=== PATIENT | male | born 1955 | race Two or more races ===

== ENCOUNTER → 2019-09-01 | Outpatient (CLI) | payer MEDICARE ==
[~2019-09-01] MED LIST: ATOR10TA60 PO; CITA20TA9 PO; GADOTERATE 5 MMOL/10ML VIAL. IVP ONE; HYDR12.575 PO; LISI2.5T PO
--- NOTE | 2019-09-01 15:43 | KCIC ---
LUMBAR SPINE WO/W CONTRAST Date: 09/01/2019 12:30 PM Indication: Low back pain with right lower extremity radiculopathy Comparison: CT abdomen pelvis 01/28/2015. Technique: Multi-planar multi-weighted magnetic resonance imaging of the lumbar spine was performed with and without intravenous contrast using the standard lumbar spine protocol. 20 cc Dotarem contrast was administered intravenously during the examination. FINDINGS: The lumbar spine is normally aligned. No acute fracture. Mild multilevel degenerative disc desiccation and disc height loss. Mild fatty degenerative endplate changes at multiple levels. Trace degenerative endplate edema at L5-S1. The conus terminates at a normal level. No abnormal signal is seen within the visualized distal spinal cord. No clumping of intrathecal nerve roots. No abnormal enhancement. No soft tissue abnormality in the visualized abdomen or pelvis. T12-L1: No disc bulge. No facet arthropathy. No significant spinal stenosis or neural foraminal narrowing. L1-L2: No disc bulge. No facet arthropathy. No significant spinal stenosis or neural foraminal narrowing. L2-L3: Disc bulge with annular tear. Mild facet arthropathy. No significant spinal stenosis or neural foraminal narrowing. L3-L4: Disc bulge. Mild to moderate facet arthropathy. Ligamentum flavum thickening. Mild spinal stenosis. No significant neural foraminal narrowing. L4-L5: Disc bulge. Moderate facet arthropathy. Mild spinal stenosis. Moderate to severe right lateral recess narrowing with abutment of the descending right L5 nerve root. Mild bilateral neural foraminal narrowing. L5-S1: Disc bulge with left far lateral protrusion which abuts the exiting left L5 nerve root. Mild facet arthropathy. Bilateral pars defects. No significant spinal stenosis or neural foraminal narrowing. IMPRESSION: Moderate lumbar spondylosis, detailed level by level above. No severe spinal canal stenosis. Electronically signed by: Antonio Anderson MD (09/01/2019 3:40 PM) [facility]
== END | disposition home or self-care (01) ==
LOC: KCIC MRI 12:16
PROVIDERS: ATTEND Physician Assistant Medical
DX: M51.27 Other intervertebral disc displacement, lumbosacral region (principal); M47.816 Spondylosis without myelopathy or radiculopathy, lumbar region; M48.061 Spinal stenosis, lumbar region without neurogenic claudication; M12.88 Other specific arthropathies, not elsewhere classified, other specified site; Z98.890 Other specified postprocedural states
CPT/HCPCS: 72158; 82565; A9575

== ENCOUNTER → 2019-10-13 | Outpatient (CLI) | payer MEDICARE ==
[~2019-10-13] MED LIST changes: +CYCL10TA2 PO; +DOCU-109 PO; +GABA600T7 PO; -GADOTERATE 5 MMOL/10ML VIAL. IVP ONE; +HYDR-3164 PO; +IBUP-1027 PO; +LISI30TA4 PO; +NAPR-514 PO; +SERT50TA PO
[2019-10-13 15:58] LABS: BASO % 1 % (0-3); EOS # 0.1 x10^3/uL (0.0-0.7); EOS % 2 % (0-3); HEMATOCRIT 40.5 % (39.0-53.0); HEMOGLOBIN 13.8 g/dL (13.0-17.5); LYMPH % 16 % (24-48); MEAN CORPUSCULAR HEMOGLOBIN 30 pg (25-35); MEAN CORPUSCULAR HGB CONC 34 g/dL (31-37); MEAN CORPUSCULAR VOLUME 87 fL (79-100); MONO # 0.7 x10^3/uL (0.0-1.1); MONO % 10 % (0-9); NEUT # 4.6 x10^3/uL (1.8-7.7); NEUT % 71 % (31-73); PLATELET COUNT 324 x10^3/uL (140-400); RED BLOOD COUNT 4.66 x10^6/uL (4.30-5.70); WHITE BLOOD COUNT 6.5 x10^3/uL (4.0-11.0)
[2019-10-13 16:02] LABS: ALBUMIN 3.5 g/dL (3.4-5.0); ALBUMIN/GLOBULIN RATIO 0.8 (1.0-1.7); CALCIUM 9.2 mg/dL (8.5-10.1); CREATININE 1.1 mg/dL (0.7-1.3); GFR 67.2; POTASSIUM 4.7 mmol/L (3.5-5.1); TOTAL BILIRUBIN 0.4 mg/dL (0.2-1.0)
--- NOTE | 2019-10-13 16:04 | EKG ---
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
== END | disposition home or self-care (01) ==
LOC: SURGPAT 13:41
PROVIDERS: ATTEND Neurological Surgery
DX: Z01.818 Encounter for other preprocedural examination (principal); M47.26 Other spondylosis with radiculopathy, lumbar region; I45.10 Unspecified right bundle-branch block
CPT/HCPCS: 36415; 80053; 85025; 87641; 93005

== ENCOUNTER 2019-10-20 07:37 | Day surgery (SDC) | payer MEDICARE ==
--- NOTE | 2019-10-17 15:49 | HP ---
ADMIT DATE: 10/20/2019 HISTORY OF PRESENT ILLNESS: The patient is a pleasant 64-year-old who has difficulty intermittently with severe back, right buttock, right lateral thigh and leg pain. He had episodes of severe pain in 2018, after which he underwent lumbar physical therapy. He has had episodes this year as well, most recently about 2 years ago. Currently, he has no pain. With severe discomfort in his knees, he is basically immobile. He takes Naprosyn, Flexeril, gabapentin when the problem occurs. PAST MEDICAL HISTORY: Hypertension. PAST SURGICAL HISTORY: Nose surgery, CTR, shoulder surgery, cholecystectomy, lumbar surgery at L3-L4, lumbar surgery at L4-L5. FAMILY HISTORY: COPD, CO at an early age. SOCIAL HISTORY: Retired. . Denies substance abuse. Denies tobacco use. Drinks coffee and tea daily. ALLERGIES: No known drug allergies. CURRENT MEDICATIONS: Lisinopril, sertraline, simvastatin, naproxen, cyclobenzaprine, gabapentin. REVIEW OF SYSTEMS: A 12-point review of systems was obtained and is noncontributory except that mentioned above. PHYSICAL EXAMINATION: NEUROSURGERY EXAMINATION: GENERAL APPEARANCE: Alert, pleasant, no acute distress. HEAD: Normocephalic and atraumatic. SKIN: Warm and dry, well-healed lumbar incision. MUSCULOSKELETAL: Lumbar paraspinal muscle bulk is normal, restricted range of motion of the lumbar spine, mild tenderness of the lower lumbar spine with palpation, normal range of motion of the lower extremities bilaterally. EXTREMITIES: No clubbing, cyanosis or edema. NEUROLOGIC: Alert and oriented x 3, normal recent and remote memory. Strength 5/5 in bilateral lower extremities, sensory was intact to light touch in bilateral lower extremities. Reflexes are present and symmetric in lower extremities bilaterally, negative straight leg raising bilaterally, normal gait. IMAGING: I reviewed a lumbar MRI scan. There are some postoperative changes on the left side. On the right side at L4-L5, there is a large hypertrophic facet with severe lateral canal and lateral recess narrowing. ASSESSMENT/ PLAN: I believe that problems at L4-L5 are responsible for his pain. He has had 3 episodes and I can make a case for operating at this time. At this point, my recommendation would be to move forward with a lumbar microdecompression at L4-L5 on the right, to see if this will help. I discussed the surgery with him including the risks. He understands the expected postoperative course as well. He understands. He would like to go ahead. We will make the arrangements. MARIZOL MARCANO MD DR: BOUBACAR/shima JOB#: [id number] / [id number] DEJON
[~2019-10-20] VITALS: Ht 166.4 cm; Wt 100.7 kg
[~2019-10-20 07:37] MED LIST changes: +BACITRACIN 50,000 UNIT in IV NORMAL SALINE 1000ML BAG 1,000 ML IRR ONE; +BUPIVACAINE-EPI 0.5%-1:200000 MPF 30 ML VIAL. INJ ONE; -DOCU-109 PO; -HYDR-3164 PO; +HYDROmorphone 2 MG/ML VIAL IV PRN; +IV RINGERS,LACTATED 1000ML 1,000 ML IV SCH; +LIDOCAINE 1% PF 2 ML VIAL. ID PRN; +MORPHINE SULFATE 2 MG/ML VIAL. IV PRN; +ONDANSETRON PF 4 MG/2 ML VIAL. IV PRN; +PROCHLORPERAZINE 10 MG/2 ML VIAL. IV PRN; +fentaNYL PF VIAL 100 MCG/2 ML VIAL IV PRN
[2019-10-20] MEDS ORDERED: KETOROLAC 60 MG/2 ML VIAL. ONE (07:48)
[2019-10-20] MEDS ORDERED: GELATIN SPONGE SIZE 100. ONE (07:48)
[2019-10-20] MEDS ORDERED: THROMBIN TOPICAL 20,000 UNIT SPRAY.SYRN KIT TP ONE (07:49)
[2019-10-20 08:09] VITALS: BP 171/60
[2019-10-20] MEDS ORDERED: REMIFENTANIL 2 MG VIAL. IV ONE (08:20)
[2019-10-20] MEDS ORDERED: GLYCOPYRROLATE 1 MG/5 ML VIAL. ONE (08:21)
[2019-10-20] MEDS ORDERED: ROCURONIUM 50 MG/5 ML VIAL. ONE (08:21)
[2019-10-20] MEDS ORDERED: DESFLURANE > 120 MINUTES IH ONE (08:22)
[2019-10-20] MEDS ORDERED: KETOROLAC 30 MG/ML VIAL. ONE (08:22)
[2019-10-20] MEDS ORDERED: PROPOFOL 50 ML IV ONE ×2 (08:22→10:00)
[2019-10-20] MEDS ORDERED: PROPOFOL 20 ML IV ONE (08:22)
[2019-10-20] MEDS ORDERED: ONDANSETRON PF 4 MG/2 ML VIAL. ONE (08:22)
[2019-10-20] MEDS ORDERED: LIDOCAINE 2% PF 5 ML VIAL. ONE (08:22)
[2019-10-20] MEDS ORDERED: DEXAMETHASONE SOD PHOS 20 MG/5 ML VIAL. ONE (08:22)
[2019-10-20] MEDS ORDERED: MIDAZOLAM HCL/PF 2 MG/2 ML VIAL. ONE (08:22)
[2019-10-20] MEDS ORDERED: PHENYLEPHRINE 10 MG/ML VIAL. ONE (08:22)
[2019-10-20] MEDS ORDERED: ceFAZolin 2GM PREMIX 2 GM/50 ML BAG IV ONE (09:00)
[2019-10-20] MEDS ORDERED: HYDR-3164 PO (09:32)
[2019-10-20] MEDS ORDERED: DOCU-109 PO (09:32)
--- NOTE | 2019-10-20 09:33 | DISCH ---
DISCHARGE INSTRUCTIONS Condition on Discharge Condition on Discharge: Stable Activity After Discharge Activity Instructions for Disc: Activity as tolerated, Avoid exertion Other activity instructions: do not drive for a week Bathing Instructions: Shower-keep dressing dry Lifting Instructions after Dis: No heavy lifting, No pulling or pushing, Do not lift >10 pounds Diet after Discharge Additional Diet Restrictions: resume home diet Wound Incision Care Wound/Incision Care: Ice to area for comfort Other wound/incision instructi: may remove dressing in 48 hours if dry then may shower, no soaking Contacting the after DC Call your doctor for: Concerns you may have Follow-Up Follow up with: Dr. Marcano's nurse in 2 weeks [phone] MARIZOL MARCANO MD Oct 20, 2019 09:33
[2019-10-20] MEDS ORDERED: NEOSTIGMINE METHYLSULFATE 5 MG/5 ML SYRINGE. ONE (09:36)
[2019-10-20] MEDS ORDERED: REMIFENTANIL 1 MG VIAL. IV ONE (11:25)
[2019-10-20] MEDS ORDERED: 0.9 % SODIUM CHLORIDE 20 ML VIAL. IJ ONE (11:25)
--- NOTE | 2019-10-20 12:14 | OP ---
DATE OF SURGERY: PREOPERATIVE DIAGNOSIS: Lateral recess stenosis and radiculopathy, L4-L5, right. POSTOPERATIVE DIAGNOSIS: Lateral recess stenosis and radiculopathy, L4-L5, right. OPERATION PERFORMED: Hemilaminotomy with microdecompression, L4-L5, right. The operation was done with EMG monitoring, SSEP monitoring, fluoroscopy, microscopic dissection. SURGEON: Ilan Marcano M.D. FLATWORK ASSEMBLER: ERIN Sebastian assisted with the surgery. She assisted with exposure, decompression and closure. OPERATIVE INDICATIONS: The patient in the past has undergone lumbar microsurgery for a left lumbar radiculopathy and did well. He then developed pain in the right side and was found to have significant right lateral stenosis for markedly hypertrophic and degenerative facet and thickened ligamentum flavum and I recommended lumbar microsurgery. I spoke with him about the surgery and the risks, the technique. He wished to go ahead. DESCRIPTION OF PROCEDURE: Following general endotracheal anesthesia, the patient was positioned prone on the Wayne table. Lumbar region was prepped and draped in standard fashion. SANTIAGO hose and AV impulse boots were applied for DVT prophylaxis. The microscope was draped. Fluoroscopy was draped and brought into field. Monitoring was established. Ancef 2 grams given less than 1 hour prior to initiation of the surgery. Using fluoroscopic guidance, a midline incision was made incorporating a portion of his previous incision directly over the L4-L5 interspace. I dissected down through skin and subcutaneous tissue, reflected the paraspinal muscles, placed a Troy microdisk retractor. There was considerable degenerative arthritis. I positioned the retractor perfectly. I then brought in the high speed air drill, I burred down a generous laminotomy and as I worked posteriorly, again there were no appropriate landmarks primarily because of the marked degenerative condition. I worked to the ligamentum flavum and performed a partial foraminotomy. I peeled away thickened ligamentum flavum from medial to lateral, exposing the dura and I decompressed the takeoff of the initial course of the L5 root performing a partial foraminotomy. I also decompressed the central canal. At this point, I felt I had an excellent decompression. I irrigated with antibiotic solution. I closed the wound in layers with absorbable suture. The skin was closed with 4-0 subcuticular stitch. I felt the surgery went very well. ILAN MARCANO MD DR: BOUBACAR/shima JOB#: [id number] / [id number] DEJON
[2019-10-20] MEDS ORDERED: HYDROcodone/APAP 5/325MG 1 TAB TABLET ONE (12:48)
[2019-10-20] MEDS ORDERED: HYDROcodone/APAP 5/325MG 1 TAB TABLET PO ONE (13:00)
--- NOTE | 2019-10-23 14:07 | PATHOLOGY ---
[facility] Accession Number: [id number] . 01 Material submitted: . vertebral column - LUMBAR DECOMPRESSION . 01 Clinical history: . Lumbar spondylosis and radiculopathy . 02 Diagnosis: "Lumbar decompression": - Fragments of unremarkable bone, hyaline cartilage, fibrous tissue, and adipose tissue. (SKM:pit; 10/23/2019) QTP 10/23/2019 0844 Local . 02 Electronically signed: . Piotr Holt MD, Pathologist NPI- [id number] . 01 Gross description: . Received in formalin labeled "Melida José, lumbar decompression," are several pieces of glistening, fibrous tissue measuring 3.4 x 2.5 x 0.7 cm in aggregate dimensions, containing small fragments of possible bone. The tissue is submitted representatively in cassette A1, following decalcification. (TSD; 10/20/2019) TOB/TOB 10/20/2019 2237 Local . 02 Pathologist provided ICD-10: M47.896, M54.10 . 02 CPT . 100315, [id number] Specimen Comment: A courtesy copy of this report has been sent to [phone], [phone] Specimen Comment: [id number] Specimen Comment: Report sent to and Performed at: 01 [facility] [address], [place] [id number] MD Christopher Hay MD Phone: [phone] Performed at: 02 [facility] [address] [place], [place] [id number] MD Naveen Coates MD Phone: [phone]
== END 2019-10-20 13:48 | disposition home or self-care (01) ==
LOC: SURG 07:37
PROVIDERS: ATTEND Neurological Surgery
DX: M48.061 Spinal stenosis, lumbar region without neurogenic claudication (principal); M54.16 Radiculopathy, lumbar region
CPT/HCPCS: 63030; 97162; A7015; J0696; J1100; J1885; J2001; J2405; J2704; J2710; J3490; J7030; 76000; J2250